=== PATIENT | male | born 1960 | race Caucasian/White ===

== ENCOUNTER 2024-04-12 19:50 | Emergency (ER) | payer OTHER, SELFPAY ==
--- NOTE | ~2024-04-12 | XR_ITS ---
EXAM: XR hand LT min 3V DATE: 04/12/2024 21:36 HISTORY: power saw injury index finger tip . COMPARISON: None available. FINDINGS: Normal mineralization. No fracture or dislocation. No lytic or blastic lesion. Mild degene rative change at the first MCP joint. Chondrocalcinosis at the TFCC. No erosion or periosteal change. Soft tissue irregularity at the tip of the index finger. IMPRESSION: No acute osseous finding in the left hand. Reviewed, dictated and finalized at location K.
[2024-04-12 19:56] VITALS: BP 144/86; PULSE 67; RESP 15; TEMP 36.6; O2SAT 98
--- NOTE | 2024-04-12 20:13 | ED.GENADULT ---
HPI - General Adult General Chief complaint: Wound/Laceration Stated complaint: laceration Time Seen by Provider: 04/12/24 20:12 Source: patient Mode of arrival: ambulatory Limitations: no limitations History of Present Illness HPI narrative: This is a 63 year male who presents to the ED for chief complaint of left index finger laceration injury that occurred just prior to arrival. Patient was working with a power saw and accidentally cut into the finger. Reports avulsion to the tip of the index finger. Denies any further sites of pain or injury. Unsure of tetanus status. Related Data Allergies Allergy/AdvReac Type Severity Reaction Status Date / Time No Known Allergies Allergy Mild Verified 08/07/10 12:22 Review of Systems Review of Systems: All systems as dictated in HPI Exam Narrative: GENERAL: Well-appearing, well-nourished, and in no acute distress. HEAD: Normocephalic, atraumatic. EYES: PERRLA and EOMI. ENT: Nares clear, no rhinorrhea or epistaxis. Mucous membranes moist. Oropharynx without tonsillar hypertrophy exudate or other lesions. NECK: Supple. No adenopathy or masses. CHEST: No respiratory distress. Clear to auscultation. No wheezes rales or rhonchi HEART: Regular rate and rhythm. No murmur heard. Normal peripheral pulses. ABDOMEN: Soft, nontender, nondistended, normal active bowel sounds. MSK: Normal range of motion. No edema. SKIN: Left hand: Complete 1.5 cm avulsion to the palmar surface of the distal left index finger. Minimal active bleeding. NEURO: Alert and oriented x3. No focal deficits. PSYCH: Normal mood and affect. Course Vital Signs Vital signs: Vital Signs Temperature 98 F 04/12/24 19:56 Pulse Rate 67 04/12/24 19:56 Respiratory Rate 15 04/12/24 19:56 Blood Pressure 144/86 H 04/12/24 19:56 Pulse Oximetry 98 04/12/24 19:56 Temperature 98 F 04/12/24 19:56 Pulse Rate 78 04/12/24 22:20 Respiratory Rate 15 04/12/24 22:20 Blood Pressure 136/72 04/12/24 22:20 Pulse Oximetry 100 04/12/24 22:20 Medical Decision Making [facility] Narrative Medical decision making narrative: this is a 63-year-old male who presents to the ED for avulsion injury to the left index finger After having the tip of the finger cut with a saw. Vitals are normal. Exam shows a raising distal left index finger. There is 1.5 cm of tissue that has been completely avulsed. No exposed bone. He is able to bend the finger. The wound was well cleansed and irrigated here. Surgicel was placed. Nonstick dressing and gauze wrap was applied. Bleeding has completely stopped. Plastics referral given due to the extensive nature of the wound. Pt will be discharged in stable condition. Return precautions given and supportive measures discussed. Pt is understanding and agreeable with plan for discharge and follow-up with PCP/plastics Vital Signs Vital Signs: Vital Signs Temperature 98 F 04/12/24 19:56 Pulse Rate 67 04/12/24 19:56 Respiratory Rate 15 04/12/24 19:56 Blood Pressure 144/86 H 04/12/24 19:56 Pulse Oximetry 98 04/12/24 19:56 Temperature 98 F 04/12/24 19:56 Pulse Rate 78 04/12/24 22:20 Respiratory Rate 15 04/12/24 22:20 Blood Pressure 136/72 04/12/24 22:20 Pulse Oximetry 100 04/12/24 22:20 Discharge Plan Discharge Clinical Impression: Avulsion of skin Patient Disposition: Home, Self-Care Condition: Stable Instructions: Antibiotic Form Additional Instructions: Exam today shows avulsion of the skin. No fracture. Keep the area clean and dressed daily. Take Tylenol and ibuprofen every 4-6 hours as needed for pain control If you have any new or worsening symptoms please return to the ER for further evaluation. Follow-up/Referrals: Salome Carolina MD [Physician] - Zaida,BENY Ragsdale Jr. [Primary Care Provider] - Time of Disposition: 22:08
[2024-04-12] MEDS: ONDANSETRON HCL ODT 4 MG TABLET PO (20:56)
[2024-04-12] MEDS: HYDROcodone/acetaminophen (*CRX) 5-325 MG TABLET 1 TAB PO (20:56)
[2024-04-12] MEDS: TETANUS,DIPHTHERIA,AC PERTUSSIS ADULT (0.5 ML) BOOSTRIX IM (21:54)
[2024-04-12 22:20] VITALS: BP 136/72; PULSE 78; RESP 15; O2SAT 100
== END 2024-04-12 22:23 | disposition home or self-care (01) ==
PROVIDERS: Emergency Provider Physician Assistant; PCP Physician Assistant
DX: S61.211A Laceration without foreign body of left index finger without damage to nail, initial encounter (principal); W31.2XXA Contact with powered woodworking and forming machines, initial encounter; Z23 Encounter for immunization
CPT/HCPCS: 73130; 90471; 90715; 99283; A9270